=== PATIENT | female | born 1980 | race Two or more races ===

== ENCOUNTER 2024-03-29 17:51 | Emergency (ER) | payer MEDICAID, SELFPAY ==
[2024-03-29] VITALS (12 sets, daily range): BP systolic 115–135; BP diastolic 39–87; PULSE 75–100; RESP 14–23; TEMP 36.7–36.9; O2SAT 100; BMI 30.7
--- NOTE | 2024-03-29 19:05 | PD.EDWEAK ---
ED Weakness RME/HPI General Chief complaint: Weakness Stated complaint: LOW HGB, SENT BY [facility] Time Seen by Provider: 03/29/24 18:46 Arrival date/time: 03/29/24 17:51 43F with history of chronic anemia 2/2 to vaginal bleeding and possible H.pylori (patient is being evaluated outpatient) presents to ED with Hgb of 6.0 from clinic. Patient has weakness and some dizziness, particularly if she stands up quickly. Limitations: no limitations Related Data Home Medications ?Medication ?Instructions ?Recorded ?Confirmed vits no.126-ferrous fum 1 tab PO QDAY 05/12/21 05/12/21 28 mg iron-folic acid 800 mcg tablet (Classic ) Previous Rx's ?Medication ?Instructions ?Recorded cetirizine 10 mg tablet 10 mg PO QDAY #14 tabs 12/25/23 Allergies Allergy/AdvReac Type Severity Reaction Status Date / Time No Known Allergies Allergy Verified 03/29/24 17:52 Review of Systems Review of Systems Systems Reviewed: All systems reviewed, normal except as documented Constitutional Constitutional: Reports system reviewed and no additional complaints, except as documented, Denies fever(s), Denies headache(s) and Reports weakness ENT Ears, Nose, Mouth, and Throat: Reports as per HPI, Denies disequilibrium, Denies headache(s) and Reports vertigo Cardiovascular Cardiovascular: Reports system reviewed and no additional complaints, except as documented, Denies chest pain and Denies dyspnea Respiratory Respiratory: Reports system reviewed and no additional complaints, except as documented, Denies cough and Denies dyspnea Gastrointestinal Gastrointestinal: Reports system reviewed and no additional complaints, except as documented, Denies abdominal pain, Denies nausea and Denies vomiting Neurologic Neurologic: Reports system reviewed and no additional complaints, except as documented, Reports as per HPI, Denies confusion, Denies disequilibrium, Denies headache(s), Reports vertigo and Reports weakness Psychiatric Psychiatric: Denies confusion Past Medical History Past Medical History NEUROLOGIC: Negative Neurological Disorders CARDIAC: Negative Cardiac Disorders or Congestive Heart Failure RESPIRATORY: Negative Chronic Obstructive Pulmonary Disease (COPD) or Asthma GASTROINTESTINAL: Negative Gastrointestinal Disorders GENITOURINARY: Negative Genitourinary Disorders or Renal Disease REPRODUCTIVE: Positive Previous Pregnancies MUSCULOSKELETAL: Negative Musculoskeletal Disorders ENDOCRINE: Negative Endocrine Disorders, Diabetes Mellitus Type 1 or Diabetes Mellitus Type 2 HEMATOLOGIC: Positive Anemia; Negative Blood Disorders or Sickle Cell Disease OTHER HISTORY: Positive Hospitalization; Negative Autoimmune Disease Family History FAMILY HISTORY: Positive Family Respiratory Disorders and Family Cardiac Disorders; Negative Family Psychiatric Problems, Family Gastrointestinal Problems, Family Cancer, Family Surgery or Family Anesthesia Reaction Surgical History SURGICAL: Negative Section Social History SMOKING STATUS: Never smoker SECOND HAND EXPOSURE: No ED Exam General Limitations: Present no limitations General appearance: Present alert and in no apparent distress Head Head exam: Present atraumatic Eye Eye exam: Present normal appearance, PERRL and EOMI ENT ENT exam: Present normal exam, normal oropharynx and mucous membranes moist Neck Neck exam: Present normal inspection, full ROM and trachea midline Chest Chest inspection: Present normal inspection and symmetric chest wall rise Respiratory Respiratory exam: Present normal lung sounds bilaterally Cardiovascular Cardiovascular exam: Present regular rate, normal rhythm and normal heart sounds Abdominal Exam Abdominal exam: Present soft and normal bowel sounds Extremities Exam Extremities exam: Present normal inspection and full ROM Back Exam Back exam: Present normal inspection and full ROM Neurological Exam Neurological exam: Present alert, oriented X3 and CN II-XII intact Psychiatric Psychiatric exam: Present normal affect and normal mood Skin Skin exam: Present warm, dry, intact and normal color Course Quality Measures none Orders Category Date Time Status Insert IV NOW Care 03/29/24 19:55 Active CBC Stat Lab 03/29/24 19:00 Completed CMP [Comprehensive Metabolic Panel] Stat Lab 03/29/24 19:00 Completed Type and Screen Stat Lab 03/29/24 19:00 Completed prbc [Red Blood Cells] Stat Lab 03/29/24 19:00 Completed Acetaminophen Tab [Tylenol ES Tab] Med 03/29/24 21:35 Discontinued 1,000 mg PO X1 ONE Vital Signs Vital signs: Vital Signs Temperature 98.2 F 03/29/24 18:42 Pulse Rate 97 03/29/24 18:42 Respiratory Rate 19 03/29/24 18:42 Blood Pressure 135/87 H 03/29/24 18:42 Pulse Oximetry (%) 100 03/29/24 18:42 Oxygen Delivery Method Room Air 03/29/24 18:42 O2 at 100% on RA and WNLs Weakness MDM Narrative MDM Narrative:: 43F with history of chronic anemia 2/2 to vaginal bleeding and possible H.pylori (patient is being evaluated outpatient) presents to ED with Hgb of 6.0 from clinic. Patient has weakness and some dizziness, particularly if she stands up quickly. Physical exam reveals clear ENT and lungs. RRR. Patient is afebrile, calm, and alert. Hgb 7.7 here. Given patient is currently actively bleeding and global/constitutional symptoms, will transfuse 1 unit. CMP unremarkable. 1 unit given w/o issue. Patient data External records reviewed:: [facility] previous records Clinical information provided by:: patient Social determinants that could affect healthcare access:: none Patient has the following chronic illnesses:: anemia How is presenting disease/condition affected by chronic disease/condition?: caused by Evaluation data The following diagnostics were reviewed and interpreted by me:: lab results Lab and/or radiology exams considered but not ordered:: ordered Interpretation Summary: above Medications / Prescriptions Medications or Prescriptions considered but not ordered:: not ordered Medication administrations:: Medication Administration History Discontinued Medications Acetaminophen (Acetaminophen 500 Mg Tablet) 1,000 mg PO X1 ONE Stop: 03/29/24 21:36 Last Admin: 03/29/24 21:57 Dose: 1,000 mg Documented By: KD n/a Consultations Consultation(s) initiated? (list below): No Diagnosis Weakness Differential Diagnosis: acute myocardial infarction, anemia, hypoglycemia, hypothyroidism, rhabdomyolysis, sepsis and dehydration Most likely diagnosis given after review of the tests above:: anemia Admission Indicated Admission indicated?: not indicated Admission Request Was there a request for admission?: No Disposition Plan Disposition Plan: Discharge Discharge Attestation Discharge Attestation: The patient and all family members were given an opportunity to ask questions and understood the discharge instructions. Discharge instructions specifically effects, indications for sooner follow up or return to the emergency department, and the expected course of current diagnosis. Patient condition: Stable Discharge Plan Plan Patient Disposition: HOME (Self Care) Disposition Comment: Stable Prescriptions/Referrals Prescriptions/Med Rec: No Action Classic 28 mg iron- 800 mcg tablet 1 tab PO QDAY cetirizine 10 mg tablet 10 mg PO QDAY Qty: 14 0RF Referrals: Hermes Vyas MD [Primary Care Provider] - In 1 week Problem List Clinical Impression: Anemia Patient/Caregiver Discharge Instructions Education Materials: Anemia Additional Instructions: Please follow-up with PCP within 24-48 hours and return immediately if symptoms worsen. Print Language: Maori Stand Alone Forms: Patient Portal Info Letter MU/JESE Supervising Physician MU/JESE Supervising Physician: Dr. Chacko
[2024-03-29 19:08] LABS: Basophils # (Auto) 0.1 Thou/mm3 (0.0-0.2); Basophils % (Auto) 1 % (0-2.5); Eosinophils # (Auto) 0.7 Thou/mm3 (0.0-0.5); Eosinophils % (Auto) 7 % (0-10); Hematocrit 27.9 % (36.0-46.0); Immature Granulocytes % (Auto) 0 % (0-0); Immature Granulocytes Auto 0.02 Thou/mm3 (0.00-0.00); Lymphocytes # (Auto) 2.7 Thou/mm3 (1.0-4.8); Lymphocytes % (Auto) 28 % (10-50); Mean Corpuscular HGB Conc 27.6 g/dl (31.0-37.0); Mean Corpuscular Hemoglobin 16.9 pg (25.0-35.0); Mean Corpuscular Volume 61 fL (80-100); Monocytes # (Auto) 0.7 Thou/mm3 (0.0-0.8); Monocytes % (Auto) 7 % (0-12); Neutrophils # (Auto) 5.5 Thou/mm3 (1.8-7.7); Neutrophils % (Auto) 57 % (37-80); Nucleated Red Blood Cell % 0 /100 WBC (0); Platelet Count 373 Thou/mm3 (140-440); RDW Standard Deviation 40.1 fL (36.4-46.3); Red Blood Count 4.56 Miln/mm3 (4.00-5.20); White Blood Count 9.6 Thou/mm3 (3.6-11.0)
[2024-03-29 19:11] LABS: Hemoglobin 7.7 g/dL (12.0-16.0)
[2024-03-29 19:39] LABS: Alanine Aminotransferase 11 U/L (10-49); Albumin, Serum 4.2 gm/dL (3.5-5.0); Albumin/Globulin Ratio 1.5 (1.2-2.2); Alkaline Phosphatase 73 U/L (46-116); Anion Gap 7 (7-16); Aspartate Amino Transferase 13 U/L (0-34); BUN/Creatinine Ratio 18 Ratio (12-20); Bilirubin,Total 0.4 mg/dL (0.3-1.2); Blood Urea Nitrogen 9 mg/dL (9-23); Calcium 10.1 mg/dL (8.3-10.6); Calcium (Corrected) 10.1 mg/dL (8.5-10.1); Carbon Dioxide 23.5 mMol/L (20.0-31.0); Chloride 108 mMol/L (98-107); Creatinine (Component) 0.5 mg/dL (0.6-1.3); Estimated Creatinine Clearance 160.4 mL/min (>60); Globulin 2.8 gm/dL (2.3-3.5); Glucose 102 mg/dL (74-106); Osmolality,Calculated 274 (275-295); Potassium 3.5 mMol/L (3.4-5.1); Sodium 138 mMol/L (136-145); eGFR > 60 See Note
[2024-03-29] MEDS: ACETAMINOPHEN 500 MG TABLET 1000 MG PO (21:57)
[2024-03-30 00:11] VITALS: BP 115/57; PULSE 73; RESP 15; TEMP 36.8; O2SAT 100
== END 2024-03-30 00:18 | disposition home or self-care (01) ==
PROVIDERS: Physician Assistant; Emergency Provider Emergency Medicine; PCP Family Medicine
DX: D50.0 Iron deficiency anemia secondary to blood loss (chronic) (principal); N93.9 Abnormal uterine and vaginal bleeding, unspecified
CPT/HCPCS: 36415; 36430; 80053; 85025; 86850; 86900; 86901; 86923; 99285; P9016; A9270

== ENCOUNTER 2024-06-13 15:48 | Emergency (ER) | payer MEDICAID, SELFPAY ==
[2024-06-13 15:49] VITALS: BMI 32.5
[2024-06-13 16:10] VITALS: BP 133/76; PULSE 95; RESP 18; TEMP 37.1; O2SAT 99
--- NOTE | 2024-06-13 16:19 | EDRME_ITS ---
Rapid Medical Screening Exam [facility] Arrival date/time: 06/13/24 15:48 43-year-old female with no known medical history presents to the emergency room with a chief complaint of weakness and fatigue x 3 days. Patient was sent over by her primary care provider for a hemoglobin of 6.2. I have greeted and performed a focused initial assessment of this patient. A comprehensive ED assessment and evaluation of the patient, analysis of all test results, and completion of the medical decision making process will be conducted by additional ED providers. Chief Complaint: General Adult/Misc Complain Vital signs: Vital Signs Temperature 98.7 F 06/13/24 16:10 Pulse Rate 95 06/13/24 16:10 Respiratory Rate 18 06/13/24 16:10 Blood Pressure 133/76 H 06/13/24 16:10 Pulse Oximetry (%) 99 06/13/24 16:10 Oxygen Delivery Method Room Air 06/13/24 16:10 Vital signs reviewed by provider: Yes
[2024-06-13 16:57] LABS: Basophils # (Auto) 0.1 Thou/mm3 (0.0-0.2); Basophils % (Auto) 1 % (0-2.5); Eosinophils # (Auto) 0.5 Thou/mm3 (0.0-0.5); Eosinophils % (Auto) 7 % (0-10); Hematocrit 26.4 % (36.0-46.0); Immature Granulocytes % (Auto) 0 % (0-0); Immature Granulocytes Auto 0.02 Thou/mm3 (0.00-0.00); Lymphocytes # (Auto) 2.2 Thou/mm3 (1.0-4.8); Lymphocytes % (Auto) 30 % (10-50); Mean Corpuscular HGB Conc 26.9 g/dl (31.0-37.0); Mean Corpuscular Hemoglobin 17.2 pg (25.0-35.0); Mean Corpuscular Volume 64 fL (80-100); Monocytes # (Auto) 0.5 Thou/mm3 (0.0-0.8); Monocytes % (Auto) 7 % (0-12); Neutrophils # (Auto) 3.9 Thou/mm3 (1.8-7.7); Neutrophils % (Auto) 54 % (37-80); Nucleated Red Blood Cell % 0 /100 WBC (0); Platelet Count 428 Thou/mm3 (140-440); RDW Standard Deviation 44.6 fL (36.4-46.3); Red Blood Count 4.13 Miln/mm3 (4.00-5.20); White Blood Count 7.2 Thou/mm3 (3.6-11.0)
[2024-06-13 17:03] LABS: Hemoglobin 7.1 g/dL (12.0-16.0)
[2024-06-13 17:22] LABS: INR 0.9 (0.9-1.3); Partial Thromboplastin Time 21.7 Seconds (22.0-36.0); Prothrombin Time 9.8 Seconds (9.0-12.2)
[2024-06-13 17:24] LABS: Alanine Aminotransferase 9 U/L (10-49); Albumin, Serum 4.2 gm/dL (3.5-5.0); Albumin/Globulin Ratio 1.6 (1.2-2.2); Alkaline Phosphatase 72 U/L (46-116); Anion Gap 7 (7-16); Aspartate Amino Transferase 17 U/L (0-34); BUN/Creatinine Ratio 16 Ratio (12-20); Bilirubin,Total 0.4 mg/dL (0.3-1.2); Blood Urea Nitrogen 8 mg/dL (9-23); Carbon Dioxide 21.7 mMol/L (20.0-31.0); Chloride 110 mMol/L (98-107); Creatinine (Component) 0.5 mg/dL (0.6-1.3); Estimated Creatinine Clearance 159.8 mL/min (>60); Globulin 2.6 gm/dL (2.3-3.5); Glucose 106 mg/dL (74-106); Osmolality,Calculated 275 (275-295); Sodium 139 mMol/L (136-145); Total Protein 6.8 gm/dL (5.7-8.2); eGFR > 60 See Note
[2024-06-13 19:38] VITALS: BP 123/78; PULSE 86; RESP 18; TEMP 36.7; O2SAT 100
--- NOTE | 2024-06-13 21:15 | EDNOTE_ITS ---
ED General RME/HPI General Chief complaint: General Adult/Misc Complain Stated complaint: TIRED, FATIGUE,ABD PAIN SENT BY [facility] FOR HGB 6.2 Time Seen by Provider: 06/13/24 20:33 Arrival date/time: 06/13/24 15:48 RME / HPI RME / HPI narrative: 43-year-old female with no known medical history presents to the emergency room with a chief complaint of weakness and fatigue x 3 days. Patient was sent over by her primary care provider for a hemoglobin of 6.2. Patient usually received blood transfusion on a monthly basis for the last 1 year. Denies any vomiting blood denies any blood in the stool denies any heavy menstruation. 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 Pending to be seen by drilling superintendent Related Data Home Medications ?Medication ?Instructions ?Recorded ?Confirmed vits no.126-ferrous fum 1 tab PO QDAY 2 05/12/21 28 mg iron-folic acid 800 mcg tablet (Classic ) Previous Rx's ?Medication ?Instructions ?Recorded cetirizine 10 mg tablet 10 mg PO QDAY #14 tabs 12/24 Allergies Allergy/AdvReac Type Severity Reaction Status Date / Time No Known Allergies Allergy Verified 06/13/24 15:50 Review of Systems Review of Systems Narrative Review of Systems: Review of system reviewed and within normal limits except mentioned in HPI ED Exam Narrative Physical exam: VITAL SIGNS: Reviewed. GENERAL APPEARANCE: Alert and interactive, follows commands, no acute distress, HEAD AND FACE: Non-traumatic. ENT: PERRL, pale conjunctiva, eyelid no trauma, Mucous membrane moist. NECK: Supple, nontender, no nuchal rigidity. CHEST: No tenderness, no crepitus, no paradoxical movement, no retractions. LUNGS: Clear, well ventilated, symmetric, no rales, no wheezing, no ronchi, no stridor, good breath sounds bilaterally. HEART: Regular rate, regular rhythm, no murmur, no gallops. ABDOMEN: Soft, positive bowel sounds, nondistended, no guarding, nontender, no rebound, no masses, RECTAL: Deferred. GENITAL: Deferred. NEUROLOGICAL: Gross motor function intact sensory function intact, Appropriate for age. MUSCULOSKELETAL: low back nontender, full range of motion. EXTREMITIES: Nontender, full range of motion. SKIN: Color pale, dry, no rash, no lacerations, no abrasions, no contusions. LYMPHATICS: Deferred. Course Quality Measures none Orders Category Date Time Status Transfuse,blood/blood products ONCE Care 06/13/24 21:14 Completed CBC Stat Lab 06/13/24 16:21 Completed CMP [Comprehensive Metabolic Panel] Stat Lab 06/13/24 16:21 Completed PT [Prothrombin Time with INR] Stat Lab 06/13/24 16:21 Completed PTT [Partial Thromboplastin Time] Stat Lab 06/13/24 16:21 Completed Type and Screen Stat Lab 06/13/24 16:21 Completed prbc [Red Blood Cells] Stat Lab 06/13/24 16:21 Completed Vital Signs Vital signs: Vital Signs Temperature 98.7 F 06/13/24 16:10 Pulse Rate 95 06/13/24 16:10 Respiratory Rate 18 06/13/24 16:10 Blood Pressure 133/76 H 06/13/24 16:10 Pulse Oximetry (%) 99 06/13/24 16:10 Oxygen Delivery Method Room Air 06/13/24 16:10 Discharge Plan Plan Patient Disposition: HOME (Self Care) Disposition Comment: Stable Prescriptions/Referrals Prescriptions/Med Rec: No Action Classic 28 mg iron- 800 mcg tablet 1 tab PO QDAY cetirizine 10 mg tablet 10 mg PO QDAY Qty: 14 0RF Referrals: Hermes Vyas MD [Primary Care Provider] - In 1 week Problem List Clinical Impression: Anemia Patient/Caregiver Discharge Instructions Discharge Activity: activity as tolerated Education Materials: Anemia Additional Instructions: Thank you for the opportunity for serving you today. You are stable for discharged . You are advised to: Follow-up with your PCP in 1 to 2 days Return to ED for worsening of symptoms Print Language: Guinean Stand Alone Forms: [employer]zy Award Info., Patient Portal Info Letter PA/JESE Supervising Physician MU/JESE Supervising Physician: MD Ricco [facility] Patient Acuity Narrative: 43-year-old female with no known medical history presents to the emergency room with a chief complaint of weakness and fatigue x 3 days. Patient was sent over by her primary care provider for a hemoglobin of 6.2. Patient usually received blood transfusion on a monthly basis for the last 1 year. Denies any vomiting blood denies any blood in the stool denies any heavy menstruation. 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 Pending to be seen by drilling superintendent Patient's hemoglobin today was noted to be 7.1 hematocrit of 26.4. Patient is needing 2 units of packed RBC. Patient received 2 units of packed RBC. No post transfusion reaction noted Patient appears nontoxic and hemodynamically stable. Patient discharged home and instructed to follow-up with primary care provider in 24 to 48 hours. Instructed to return to the emergency department immediately if worsening of symptoms
[2024-06-13 21:39] VITALS: BP 124/80; PULSE 81; RESP 20; TEMP 37.2; O2SAT 100
[2024-06-13 23:03] VITALS: BP 135/75; PULSE 80; RESP 18; TEMP 36.7; O2SAT 99
[2024-06-13 23:26] VITALS: BP 119/65; PULSE 74; RESP 16; TEMP 36.7
[2024-06-13 23:41] VITALS: BP 109/66; PULSE 78; RESP 18; TEMP 36.7
[2024-06-14 00:41] VITALS: BP 109/66; PULSE 79; RESP 18; TEMP 36.7; O2SAT 98
[2024-06-14 00:55] VITALS: BP 108/66; PULSE 80; RESP 18; TEMP 36.8; O2SAT 98
[2024-06-14 01:11] VITALS: BP 115/55; PULSE 75; RESP 16; TEMP 36.9; O2SAT 99
[2024-06-14 01:26] VITALS: BP 118/60; PULSE 77; RESP 18; TEMP 36.9; O2SAT 99
[2024-06-14 02:27] VITALS: BP 118/59; PULSE 77; RESP 16; TEMP 36.9; O2SAT 99
--- NOTE | 2024-06-14 02:31 | PC.NURSE ---
pt recieved 2 units of blood. No adverse reactions and pt tolerated well.. VS stabled
== END 2024-06-14 02:36 | disposition home or self-care (01) ==
PROVIDERS: Nurse Practitioner Family; Emergency Provider Emergency Medicine; PCP Family Medicine
DX: D64.9 Anemia, unspecified (principal)
CPT/HCPCS: 36415; 36430; 80053; 85025; 85610; 85730; 86850; 86900; 86901; 86923; 99285; P9016

== ENCOUNTER 2024-06-27 10:02 | Emergency (ER) | payer MEDICAID, SELFPAY ==
[2024-06-27 10:21] VITALS: BP 120/81; PULSE 81; RESP 18; TEMP 37; O2SAT 99; BMI 32.5
--- NOTE | 2024-06-27 10:23 | EKG_ITS ---
[facility] Test Date: 2024-06-27 Pat Name: ANIBAL ROBLES Department: Room: - Gender: Female Contact Center Rep: : [id number] Requested By: Serg Beard Order Number: [id number] Reading MD: Serg Beard Measurements Intervals [place] Rate: 84 P: 58 VA: 153 QRS: 4 QRSD: 86 T: 24 QT: 334 QTc: 397 Interpretive Statements SINUS RHYTHM Compared to ECG 11/15/2023 00:30:59 No significant changes /store/S0/[id number]/[id number].pdf
--- NOTE | 2024-06-27 10:24 | XR_ITS ---
Examination: PA lateral chest 2 views TECHNIQUE: Upright PA lateral chest 2 views Exam date and time: June 27, 2024 1035 hours INDICATIONS: Chest pain beginning 3 days ago. FINDINGS: Normal heart size. Lungs are clear. Osseous structures are intact IMPRESSION: No active disease
--- NOTE | 2024-06-27 10:24 | PD.EDRME ---
Rapid Medical Screening Exam [facility] Arrival date/time: 06/27/24 10:02 43-year-old female with a history of anemia presents to the emergency room with a chief complaint of shortness of breath, bilateral lower extremity swelling, and generalized weakness x 2 days I have greeted and performed a focused initial assessment of this patient. A comprehensive ED assessment and evaluation of the patient, analysis of all test results, and completion of the medical decision making process will be conducted by additional ED providers. Chief Complaint: Weakness Time Seen by Provider: 06/27/24 10:11 Vital signs: Vital Signs Temperature 98.6 F 06/27/24 10:21 Pulse Rate 81 06/27/24 10:21 Respiratory Rate 18 06/27/24 10:21 Blood Pressure 120/81 06/27/24 10:21 Pulse Oximetry (%) 99 06/27/24 10:21 Oxygen Delivery Method Room Air 06/27/24 10:21 Vital signs reviewed by provider: Yes
[2024-06-27 11:21] LABS: Basophils # (Auto) 0.1 Thou/mm3 (0.0-0.2); Basophils % (Auto) 2 % (0-2.5); Eosinophils # (Auto) 0.4 Thou/mm3 (0.0-0.5); Eosinophils % (Auto) 5 % (0-10); Hematocrit 34.1 % (36.0-46.0); Hemoglobin 9.9 g/dL (12.0-16.0); Immature Granulocytes % (Auto) 0 % (0-0); Immature Granulocytes Auto 0.01 Thou/mm3 (0.00-0.00); Lymphocytes # (Auto) 2.1 Thou/mm3 (1.0-4.8); Lymphocytes % (Auto) 29 % (10-50); Mean Corpuscular Hemoglobin 19.3 pg (25.0-35.0); Mean Corpuscular Volume 67 fL (80-100); Monocytes # (Auto) 0.4 Thou/mm3 (0.0-0.8); Monocytes % (Auto) 6 % (0-12); Neutrophils # (Auto) 4.3 Thou/mm3 (1.8-7.7); Neutrophils % (Auto) 59 % (37-80); Nucleated Red Blood Cell % 0 /100 WBC (0); Platelet Count 362 Thou/mm3 (140-440); RDW Standard Deviation 53.3 fL (36.4-46.3); Red Blood Count 5.12 Miln/mm3 (4.00-5.20); White Blood Count 7.3 Thou/mm3 (3.6-11.0)
[2024-06-27 11:29] LABS: INR 0.9 (0.9-1.3); Partial Thromboplastin Time 23.5 Seconds (22.0-36.0); Prothrombin Time 10.3 Seconds (9.0-12.2)
[2024-06-27 11:34] LABS: Collection Type, Urine Clean Catch
[2024-06-27 11:34] LABS: B-Type Natriuretic Peptide 39 pg/mL (0-100)
[2024-06-27 11:37] LABS: Alanine Aminotransferase 11 U/L (10-49); Albumin, Serum 4.4 gm/dL (3.5-5.0); Albumin/Globulin Ratio 1.6 (1.2-2.2); Alkaline Phosphatase 84 U/L (46-116); Anion Gap 7 (7-16); Aspartate Amino Transferase 20 U/L (0-34); BUN/Creatinine Ratio 18 Ratio (12-20); Bilirubin,Total 0.5 mg/dL (0.3-1.2); Blood Urea Nitrogen 9 mg/dL (9-23); Calcium 10.3 mg/dL (8.3-10.6); Calcium (Corrected) 10.3 mg/dL (8.5-10.1); Carbon Dioxide 24.4 mMol/L (20.0-31.0); Chloride 105 mMol/L (98-107); Creatinine (Component) 0.5 mg/dL (0.6-1.3); Estimated Creatinine Clearance 159.7 mL/min (>60); Globulin 2.8 gm/dL (2.3-3.5); Glucose 119 mg/dL (74-106); Magnesium 1.8 mg/dL (1.6-2.6); Osmolality,Calculated 271 (275-295); Potassium 3.9 mMol/L (3.4-5.1); Sodium 136 mMol/L (136-145); Total Protein 7.2 gm/dL (5.7-8.2); Troponin I < 0.020 ng/mL (0.0-0.045); eGFR > 60 See Note
[2024-06-27 11:53] LABS: Bilirubin,Urine Negative (Negative); Blood,Urine Negative (Negative); Clarity,Urine Clear (Clear/Hazy); Color,Urine Lt-Yellow (Lt Yel-Yel); Glucose, Urine Negative (Negative); Ketones,Urine Negative (Negative); Leukocyte Esterase,Urine Negative (Negative); Nitrite,Urine Negative (Negative); PH,Urine 6.5 (5.0-7.0); Protein,Urine Negative (Neg - Trace); RBC,Urine 7 /hpf (0-3); Specific Gravity,Urine 1.013 (1.001-1.035); Squamous Epithelial Cell,Urine 4 /hpf (0-5); Urobilinogen,Urine Negative mg/dL (0.0-1.0); WBC,Urine 1 /hpf (0-5)
--- NOTE | 2024-06-27 12:53 | PD.EDWEAK ---
ED Weakness RME/HPI General Chief complaint: Weakness Stated complaint: WEAKNESS, FATIGUE, FEET SWOLLEN , SOB WHEN WALKIN Time Seen by Provider: 06/27/24 10:11 Source: patient Arrival date/time: 06/27/24 10:02 43-year-old female with a history of anemia presents to the emergency room with a chief complaint of shortness of breath, bilateral lower extremity swelling, and generalized weakness x 2 days Mode of arrival: ambulatory Limitations: no limitations RME / HPI RME / HPI Narrative: 06/27/24 10:02 43-year-old female with a history of anemia presents to the emergency room with a chief complaint of shortness of breath, bilateral lower extremity swelling, and generalized weakness x 2 days I have greeted and performed a focused initial assessment of this patient. A comprehensive ED assessment and evaluation of the patient, analysis of all test results, and completion of the medical decision making process will be conducted by additional ED providers. Related Data Home Medications ?Medication ?Instructions ?Recorded ?Confirmed vits no.126-ferrous fum 1 tab PO QDAY 05/12/21 05/12/21 28 mg iron-folic acid 800 mcg tablet (Classic ) Previous Rx's ?Medication ?Instructions ?Recorded cetirizine 10 mg tablet 10 mg PO QDAY #14 tabs 12/25/23 Allergies Allergy/AdvReac Type Severity Reaction Status Date / Time No Known Allergies Allergy Verified 06/27/24 10:05 Review of Systems Review of Systems Systems Reviewed: All systems reviewed, normal except as documented Constitutional Constitutional: Reports system reviewed and no additional complaints, except as documented, Denies fatigue, Denies fever(s), Denies headache(s) and Reports weakness Eyes Eyes: Reports system reviewed and no additional complaints, except as documented, Denies blurry vision and Denies change in vision ENT Ears, Nose, Mouth, and Throat: Reports system reviewed and no additional complaints, except as documented, Denies otalgia, Denies headache(s), Denies nasal congestion, Denies throat swelling and Denies vertigo Cardiovascular Cardiovascular: Reports system reviewed and no additional complaints, except as documented, Denies chest pain, Denies dyspnea and Denies dyspnea on exertion Respiratory Respiratory: Reports system reviewed and no additional complaints, except as documented, Denies chest congestion, Denies cough, Denies dyspnea, Denies dyspnea on exertion and Denies wheezing Gastrointestinal Gastrointestinal: Reports system reviewed and no additional complaints, except as documented, Denies abdominal pain, Denies cramping, Denies nausea and Denies vomiting Genitourinary Genitourinary: Reports system reviewed and no additional complaints, except as documented Musculoskeletal Musculoskeletal: Reports system reviewed and no additional complaints, except as documented and Denies back pain Integumentary/Breasts Skin/Breast: Reports system reviewed and no additional complaints, except as documented and Denies wounds Neurologic Neurologic: Reports system reviewed and no additional complaints, except as documented, Denies confusion, Denies headache(s), Denies lack of coordination, Denies vertigo and Reports weakness Psychiatric Psychiatric: Reports system reviewed and no additional complaints, except as documented, Denies anxiety, Denies confusion, Denies depression, Denies paranoia, Denies suicidal ideation and Denies tactile hallucinations Endocrine Endocrine: Reports system reviewed and no additional complaints, except as documented and Denies fatigue Hematologic/Lymphatic Hematologic/Lymphatic: Reports system reviewed and no additional complaints, except as documented and Denies lymphadenopathy Allergic/Immunologic Allergic/Immunologic: Reports system reviewed and no additional complaints, except as documented, Denies throat swelling, Denies urticaria and Denies wheezing Past Medical History Past Medical History NEUROLOGIC: Negative Neurological Disorders CARDIAC: Negative Cardiac Disorders or Congestive Heart Failure RESPIRATORY: Negative Chronic Obstructive Pulmonary Disease (COPD) or Asthma GASTROINTESTINAL: Negative Gastrointestinal Disorders GENITOURINARY: Negative Genitourinary Disorders or Renal Disease REPRODUCTIVE: Positive Previous Pregnancies MUSCULOSKELETAL: Negative Musculoskeletal Disorders ENDOCRINE: Negative Endocrine Disorders, Diabetes Mellitus Type 1 or Diabetes Mellitus Type 2 HEMATOLOGIC: Positive Anemia; Negative Blood Disorders or Sickle Cell Disease OTHER HISTORY: Positive Hospitalization; Negative Autoimmune Disease Family History FAMILY HISTORY: Positive Family Respiratory Disorders and Family Cardiac Disorders; Negative Family Psychiatric Problems, Family Gastrointestinal Problems, Family Cancer, Family Surgery or Family Anesthesia Reaction Surgical History SURGICAL: Negative Section Social History SMOKING STATUS: Never smoker SECOND HAND EXPOSURE: No ED Exam General Limitations: Present no limitations General appearance: Present alert and in no apparent distress Head Head exam: Present atraumatic Eye Eye exam: Present normal appearance, PERRL and EOMI ENT ENT exam: Present normal exam, normal oropharynx and mucous membranes moist Neck Neck exam: Present normal inspection, full ROM and trachea midline Chest Chest inspection: Present normal inspection and symmetric chest wall rise Respiratory Respiratory exam: Present normal lung sounds bilaterally Cardiovascular Cardiovascular exam: Present regular rate, normal rhythm and normal heart sounds Abdominal Exam Abdominal exam: Present soft and normal bowel sounds Extremities Exam Extremities exam: Present normal inspection and full ROM Expanded Lower Extremity Exam Hip/Pelvis exam: Present normal inspection Upper leg exam: Present normal inspection Knee exam: Present normal inspection Lower leg exam: Present swelling and other (+1 edema bilateral lower extremities) Ankle exam: Present swelling Foot/toe exam: Present swelling Gait: observed and normal Back Exam Back exam: Present normal inspection and full ROM Neurological Exam Neurological exam: Present alert, oriented X3 and CN II-XII intact Psychiatric Psychiatric exam: Present normal affect and normal mood Skin Skin exam: Present warm, dry, intact and normal color Course Quality Measures none Orders Category Date Time Status EKG (ED ONLY) *Do not use* NOW Care 06/27/24 10:23 Completed EKG (ED Only) Stat Exams 06/27/24 10:23 Draft XR chest 2V Stat Exams 06/27/24 10:24 Completed B-Type Natriuretic Peptide Stat Lab 06/27/24 10:45 Completed CBC Stat Lab 06/27/24 10:45 Completed Comprehensive Metabolic Panel Stat Lab 06/27/24 10:45 Completed Drug Screen,Urine Stat Lab 06/27/24 11:00 Received Magnesium Stat Lab 06/27/24 10:45 Completed Partial Thromboplastin Time Stat Lab 06/27/24 10:45 Completed Prothrombin Time with INR Stat Lab 06/27/24 10:45 Completed Troponin I Stat Lab 06/27/24 10:45 Completed Urinalysis Stat Lab 06/27/24 11:00 Completed Vital Signs Vital signs: Vital Signs Temperature 98.6 F 06/27/24 10:21 Pulse Rate 81 06/27/24 10:21 Respiratory Rate 18 06/27/24 10:21 Blood Pressure 120/81 06/27/24 10:21 Pulse Oximetry (%) 99 06/27/24 10:21 Oxygen Delivery Method Room Air 06/27/24 10:21 O2 saturation 99% within normal limits Procedures -ED EKG Interpretation #1: Date of EK06/27/24 Rate: 84 Interpretation: Reviewed by me EKG Impression: Normal sinus rhythm Weakness MDM Narrative MDM Narrative:: 43-year-old female with a history of anemia presents to the emergency room with a chief complaint of shortness of breath, bilateral lower extremity swelling, and generalized weakness x 2 days Patient is hemodynamically stable and in no apparent distress. Physical examination shows clear bilateral lung sounds. There is no wheezing or any abnormal breath sounds The patient has a normal regular rate S1 and S2 was noted. EKG was completed and shows normal sinus rhythm at 84 bpm. CBC CMP were negative for any acute findings. Troponin and BNP were within normal limits. The patient's lower extremities have +1 edema. CBC did show some iron deficiency anemia that could be the contributing factor to her weakness and generalized fatigue. Patient states she is unable to take iron pills as they make her sick but she does have an appointment with a blood specialist for possible iron transfusions. Patient was discharged and educated to follow-up with primary care provider in the next 24 to 48 hours and return to the emergency room for any evidence of worsening signs or symptoms Patient data External records reviewed:: [facility] previous records Clinical information provided by:: patient Social determinants that could affect healthcare access:: none Patient has the following chronic illnesses:: No chronic illness How is presenting disease/condition affected by chronic disease/condition?: no chronic disease Evaluation data The following diagnostics were reviewed and interpreted by me:: lab results and radiology exam(s) Lab and/or radiology exams considered but not ordered:: Labs radiology exams considered and ordered Interpretation Summary: Chest [id number]: Normal heart size. Lungs are clear. Osseous structures are intact IMPRESSION: No active disease Medications / Prescriptions Medications or Prescriptions considered but not ordered:: Medication not given Medication administrations:: Medication not given Consultations Consultation(s) initiated? (list below): No Diagnosis Weakness Differential Diagnosis: acute myocardial infarction, anemia, dehydration and other Most likely diagnosis given after review of the tests above:: Iron deficiency anemia Admission Indicated Admission indicated?: not indicated Admission Request Was there a request for admission?: No Disposition Plan Disposition Plan: Discharge Discharge Attestation Discharge Attestation: The patient and all family members were given an opportunity to ask questions and understood the discharge instructions. Discharge instructions specifically effects, indications for sooner follow up or return to the emergency department, and the expected course of current diagnosis. Patient condition: Stable Discharge Plan Plan Patient Disposition: HOME (Self Care) Discharge Disposition comment: Stable Prescriptions/Referrals Prescriptions/Med Rec: No Action Classic 28 mg iron- 800 mcg tablet 1 tab PO QDAY cetirizine 10 mg tablet 10 mg PO QDAY Qty: 14 0RF Referrals: Melisa Jon NP [Primary Care Provider] - In 1 week Problem List Clinical Impression: Swelling of lower extremity, Iron deficiency anemia Patient/Caregiver Discharge Instructions Education Materials: ED Leg Swelling in Both Legs Additional Instructions: Please follow-up with your primary care provider in the next 24 to 48 hours. Your cardiac examination was within normal limits. Your EKG showed normal sinus rhythm. Your blood work was negative for any acute findings. Your chest x-ray was completed and was also negative for any pneumonia your urinalysis was within normal limits Please follow-up with your primary care provider for further workup and management For any evidence of worsening signs or symptoms return to the emergency room immediately Print Language: Kyrgyz Stand Alone Forms: Litzy Award Info., Work/School Release, Patient Portal Info Letter PA/[employer] Supervising Physician PA/[employer] Supervising Physician: Dr. Reyes
[2024-06-27 12:54] VITALS: BP 122/77; PULSE 78
[2024-06-27 13:20] LABS: Amphetamine/Methamp Scrn,U Negative (Negative); Barbiturate Screen,Urine Negative (Negative); Benzodiazepines Screen,Urine Negative (Negative); Benzoylecgonine Screen, Ur Negative (Negative); Fentanyl Screen,Urine Negative (Negative); Opiate Screen,Urine Negative (Negative); THC Screen,Urine Negative (Negative)
[2024-06-27 14:05] LABS: Path Review Blood Smear Sent to Pathologist
== END 2024-06-27 12:55 | disposition home or self-care (01) ==
PROVIDERS: Nurse Practitioner Family; Emergency Provider Family Medicine; PCP Nurse Practitioner Women's Health
DX: D50.9 Iron deficiency anemia, unspecified (principal); M79.89 Other specified soft tissue disorders; R07.9 Chest pain, unspecified
CPT/HCPCS: 36415; 71046; 80053; 80307; 81001; 83735; 83880; 84484; 85025; 85610; 85730; 93005; 99283

== ENCOUNTER 2024-10-17 10:36 | Emergency (ER) | payer MEDICAID, SELFPAY ==
[2024-10-17 11:03] VITALS: BP 134/82; PULSE 96; RESP 19; TEMP 36.8; O2SAT 100; BMI 31.9
[2024-10-17 12:11] LABS: Basophils # (Auto) 0.1 Thou/mm3 (0.0-0.2); Basophils % (Auto) 1 % (0-2.5); Eosinophils # (Auto) 0.4 Thou/mm3 (0.0-0.5); Eosinophils % (Auto) 7 % (0-10); Hematocrit 27.3 % (36.0-46.0); Immature Granulocytes Auto 0.01 Thou/mm3 (0.00-0.00); Lymphocytes # (Auto) 2.0 Thou/mm3 (1.0-4.8); Lymphocytes % (Auto) 31 % (10-50); Mean Corpuscular HGB Conc 26.7 g/dl (31.0-37.0); Mean Corpuscular Hemoglobin 16.6 pg (25.0-35.0); Mean Corpuscular Volume 62 fL (80-100); Monocytes # (Auto) 0.4 Thou/mm3 (0.0-0.8); Monocytes % (Auto) 6 % (0-12); Neutrophils # (Auto) 3.5 Thou/mm3 (1.8-7.7); Neutrophils % (Auto) 55 % (37-80); Nucleated Red Blood Cell # 0.00 Thou/mm3 (0.00-0.00); Nucleated Red Blood Cell % 0 /100 WBC (0); Platelet Count 344 Thou/mm3 (140-440); RDW Standard Deviation 42.3 fL (36.4-46.3); Red Blood Count 4.40 Miln/mm3 (4.00-5.20); White Blood Count 6.3 Thou/mm3 (3.6-11.0)
[2024-10-17 12:16] LABS: INR 0.9 (0.9-1.3); Partial Thromboplastin Time 22.5 Seconds (22.0-36.0); Prothrombin Time 10.3 Seconds (9.0-12.2)
--- NOTE | 2024-10-17 12:16 | PD.EDRME ---
Rapid Medical Screening Exam RME Arrival date/time: 10/17/24 10:36 44-year-old female presents the Emergency Department for complaints of dizziness Chief Complaint: Dizziness Time Seen by Provider: 10/17/24 13:00 Vital signs: Vital Signs Temperature 98.2 F 10/17/24 11:03 Pulse Rate 96 10/17/24 11:03 Respiratory Rate 19 10/17/24 11:03 Blood Pressure 134/82 H 10/17/24 11:03 Pulse Oximetry (%) 100 10/17/24 11:03 Oxygen Delivery Method Room Air 10/17/24 11:03
[2024-10-17 12:19] LABS: HCG,Qualitative Serum Negative
[2024-10-17 12:30] LABS: Hemoglobin 7.3 g/dL (12.0-16.0)
[2024-10-17 12:41] LABS: Alanine Aminotransferase 9 U/L (10-49); Albumin, Serum 4.1 gm/dL (3.5-5.0); Albumin/Globulin Ratio 1.6 (1.2-2.2); Alkaline Phosphatase 82 U/L (46-116); Anion Gap 7 (7-16); Aspartate Amino Transferase 14 U/L (0-34); BUN/Creatinine Ratio 18 Ratio (12-20); Bilirubin,Total 0.5 mg/dL (0.3-1.2); Blood Urea Nitrogen 9 mg/dL (9-23); Calcium 10.8 mg/dL (8.3-10.6); Calcium (Corrected) 10.8 mg/dL (8.5-10.1); Carbon Dioxide 24.1 mMol/L (20.0-31.0); Chloride 107 mMol/L (98-107); Creatinine (Component) 0.5 mg/dL (0.6-1.3); Estimated Creatinine Clearance 156.5 mL/min (>60); Globulin 2.6 gm/dL (2.3-3.5); Glucose 101 mg/dL (74-106); Osmolality,Calculated 274 (275-295); Potassium 3.8 mMol/L (3.4-5.1); Sodium 138 mMol/L (136-145); Total Protein 6.7 gm/dL (5.7-8.2); eGFR > 60 See Note
--- NOTE | 2024-10-17 13:09 | PD.EDDIZZY ---
ED Dizzyness RME/HPI General Chief Complaint: Dizziness Stated Complaint: Dizzy, anemic sent by [facility] Time Seen by Provider: 10/17/24 13:00 Arrival date/time: 10/17/24 10:36 RME / HPI RME / HPI Narrative: 44-year-old female presents the Emergency Department for complaints of dizziness. Patient woke up this morning with dizziness, severity mild. Patient has a history of anemia, secondary to heavy menstruation. Patient went to PCP and was referred here for evaluation regarding anemia. Patient denies any vomiting blood denies any blood in the stool. Patient is ambulatory. Denies any chest pain. Denies any shortness of breath on ambulation. Currently not on any medication. Related Data Home Medications ?Medication ?Instructions ?Recorded ?Confirmed vits no.126-ferrous fum 1 tab PO QDAY 05/12/21 05/12/21 28 mg iron-folic acid 800 mcg tablet (Classic ) Previous Rx's ?Medication ?Instructions ?Recorded cetirizine 10 mg tablet 10 mg PO QDAY #14 tabs 12/25/23 ferrous sulfate 324 mg (65 mg 324 mg PO TID #90 tabs 10/17/24 iron) tablet,delayed release pantoprazole 40 mg tablet,delayed 40 mg PO QDAY #30 tabs 10/17/24 release (Protonix) Allergies Allergy/AdvReac Type Severity Reaction Status Date / Time No Known Allergies Allergy Verified 10/17/24 10:40 Review of Systems Review of Systems Narrative Review of Systems: Review of system reviewed and within normal limits except mentioned in HPI ED Exam Narrative Physical exam: VITAL SIGNS: Reviewed. GENERAL APPEARANCE: Alert and interactive, follows commands, no acute distress, HEAD AND FACE: Non-traumatic. ENT: PERRL, pale conjunctiva, eyelid no trauma, Mucous membrane moist. NECK: Supple, nontender, no nuchal rigidity. CHEST: No tenderness, no crepitus, no paradoxical movement, no retractions. LUNGS: Clear, well ventilated, symmetric, no rales, no wheezing, no ronchi, no stridor, good breath sounds bilaterally. HEART: Regular rate, regular rhythm, no murmur, no gallops. ABDOMEN: Soft, positive bowel sounds, nondistended, no guarding, nontender, no rebound, no masses, RECTAL: Deferred. GENITAL: Deferred. NEUROLOGICAL: Gross motor function intact sensory function intact, Appropriate for age. MUSCULOSKELETAL: low back nontender, full range of motion. EXTREMITIES: Nontender, full range of motion. SKIN: Color pale, dry, no rash, no lacerations, no abrasions, no contusions. LYMPHATICS: Deferred. Course Quality Measures none Orders Category Date Time Status CBC Stat Lab 10/17/24 11:11 Completed Comprehensive Metabolic Panel Stat Lab 10/17/24 11:11 Completed HCG,Qualitative Serum Stat Lab 10/17/24 11:11 Completed Partial Thromboplastin Time Stat Lab 10/17/24 11:11 Completed Prothrombin Time with INR Stat Lab 10/17/24 11:11 Completed Type and Screen Stat Lab 10/17/24 11:11 Completed Vital Signs Vital signs: Vital Signs Temperature 98.2 F 10/17/24 11:03 Pulse Rate 96 10/17/24 11:03 Respiratory Rate 19 10/17/24 11:03 Blood Pressure 134/82 H 10/17/24 11:03 Pulse Oximetry (%) 100 10/17/24 11:03 Oxygen Delivery Method Room Air 10/17/24 11:03 Dizziness MDM Narrative MDM Narrative:: 44-year-old female presents the Emergency Department for complaints of dizziness. Patient woke up this morning with dizziness, severity mild. Patient has a history of anemia, secondary to heavy menstruation. Patient went to PCP and was referred here for evaluation regarding anemia. Patient denies any vomiting blood denies any blood in the stool. Patient is ambulatory. Denies any chest pain. Denies any shortness of breath on ambulation. Currently not on any medication. Patient reports her workup is significant for hemoglobin of 7.3 hematocrit of 27.2 platelet is normal*labs unremarkable. Patient was given options for emergency blood transfusion however patient wanted to go home with iron supplement. Patient appears nontoxic and hemodynamically stable .Decision to discharge the patient. The patient/family was given an opportunity to ask questions and understood their discharge instructions. Discharge instructions specifically included follow up provider and time frame, current and/or new medications and possible side effects, indications for sooner follow up or return to the emergency department, and the expected course of current diagnosis. Patient reports feeling better as well and giving evidence of significant clinical improvement, I believe patient is now a candidate for discharge. Patient data External records reviewed:: None Clinical information provided by:: patient Social determinants that could affect healthcare access:: none Patient has the following chronic illnesses:: History of chronic anemia How is presenting disease/condition affected by chronic disease/condition?: exacerbated by Evaluation data The following diagnostics were reviewed and interpreted by me:: lab results Lab and/or radiology exams considered but not ordered:: None Interpretation Summary: See results MDM Medications / Prescriptions Medications or Prescriptions considered but not ordered:: None Medication administrations:: None Consultations Consultation(s) initiated? (list below): No Diagnosis Dizziness Differential Diagnosis: benign paroxysmal positional vertigo and other (Anemia, dizziness) Most likely diagnosis given after review of the tests above:: Anemia, dizziness Admission Indicated Admission indicated?: not indicated Admission Request Was there a request for admission?: No Disposition Plan Disposition Plan: Discharge Discharge Attestation Discharge Attestation: The patient was given an opportunity to ask questions and understood the discharge instructions. Discharge instructions specifically effects, indications for sooner follow up or return to the emergency department, and the expected course of current diagnosis. Patient condition: Stable Discharge Plan Plan Patient Disposition: HOME (Self Care) Discharge Disposition comment: stable Prescriptions/Referrals Prescriptions/Med Rec: New ferrous sulfate 324 mg (65 mg iron) tablet,delayed release (DR/EC) 324 mg PO TID Qty: 90 0RF pantoprazole [Protonix] 40 mg tablet,delayed release (DR/EC) 40 mg PO QDAY Qty: 30 0RF No Action Classic 28 mg iron- 800 mcg tablet 1 tab PO QDAY cetirizine 10 mg tablet 10 mg PO QDAY Qty: 14 0RF Referrals: Hermes Vyas MD [Primary Care Provider] - In 1 week Problem List Clinical Impression: Anemia Patient/Caregiver Discharge Instructions Discharge Activity: activity as tolerated Education Materials: Anemia Additional Instructions: Thank you for the opportunity for serving you today. You are stable for discharged . You are advised to: Follow-up with your PCP in 1 to 2 days Return to ED for worsening of symptoms Increase oral fluids Take medication as prescribed Increase intake of red meat, liver, green leafy vegetables Print Language: Tamazight Stand Alone Forms: [employer]zy Award Info., Patient Portal Info Letter PA/J[employer] Supervising Physician MU/JESE Supervising Physician: MD Eric
== END 2024-10-17 13:16 | disposition home or self-care (01) ==
PROVIDERS: Nurse Practitioner Primary Care; Emergency Provider Family Medicine; PCP Family Medicine
DX: D50.0 Iron deficiency anemia secondary to blood loss (chronic) (principal)
CPT/HCPCS: 36415; 80053; 84703; 85025; 85610; 85730; 86850; 86900; 86901; 99283

== ENCOUNTER 2024-11-07 21:51 | Emergency (ER) | payer MEDICAID, SELFPAY ==
[2024-11-07 21:53] VITALS: BMI 31.8
[2024-11-07 22:25] LABS: Basophils # (Auto) 0.1 Thou/mm3 (0.0-0.2); Basophils % (Auto) 1 % (0-2.5); Eosinophils # (Auto) 0.5 Thou/mm3 (0.0-0.5); Eosinophils % (Auto) 7 % (0-10); Hematocrit 24.9 % (36.0-46.0); Immature Granulocytes Auto 0.01 Thou/mm3 (0.00-0.00); Lymphocytes # (Auto) 2.6 Thou/mm3 (1.0-4.8); Lymphocytes % (Auto) 35 % (10-50); Mean Corpuscular HGB Conc 26.1 g/dl (31.0-37.0); Mean Corpuscular Hemoglobin 15.9 pg (25.0-35.0); Mean Corpuscular Volume 61 fL (80-100); Monocytes # (Auto) 0.4 Thou/mm3 (0.0-0.8); Monocytes % (Auto) 5 % (0-12); Neutrophils # (Auto) 3.7 Thou/mm3 (1.8-7.7); Neutrophils % (Auto) 52 % (37-80); Nucleated Red Blood Cell # 0.00 Thou/mm3 (0.00-0.00); Nucleated Red Blood Cell % 0 /100 WBC (0); Platelet Count 319 Thou/mm3 (140-440); RDW Standard Deviation 40.5 fL (36.4-46.3); Red Blood Count 4.08 Miln/mm3 (4.00-5.20); White Blood Count 7.2 Thou/mm3 (3.6-11.0)
[2024-11-07 22:31] LABS: Hemoglobin 6.5 g/dL (12.0-16.0)
[2024-11-07 22:45] LABS: Alanine Aminotransferase 14 U/L (10-49); Albumin, Serum 4.2 gm/dL (3.5-5.0); Albumin/Globulin Ratio 1.5 (1.2-2.2); Alkaline Phosphatase 84 U/L (46-116); Anion Gap 7 (7-16); Aspartate Amino Transferase 17 U/L (0-34); BUN/Creatinine Ratio 16 Ratio (12-20); Bilirubin,Total 0.4 mg/dL (0.3-1.2); Blood Urea Nitrogen 8 mg/dL (9-23); Calcium 10.5 mg/dL (8.3-10.6); Calcium (Corrected) 10.5 mg/dL (8.5-10.1); Carbon Dioxide 22.7 mMol/L (20.0-31.0); Chloride 111 mMol/L (98-107); Creatinine (Component) 0.5 mg/dL (0.6-1.3); Estimated Creatinine Clearance 161.7 mL/min (>60); Globulin 2.8 gm/dL (2.3-3.5); Glucose 100 mg/dL (74-106); Osmolality,Calculated 279 (275-295); Potassium 4.0 mMol/L (3.4-5.1); Sodium 141 mMol/L (136-145); Total Protein 7.0 gm/dL (5.7-8.2); eGFR > 60 See Note
--- NOTE | 2024-11-07 23:09 | PD.EDRME ---
Rapid Medical Screening Exam RME Arrival date/time: 11/07/24 21:51 44F with history of history of chronic anemia 2/2 to vaginal bleeding and H.pylori (s/p treatment) presents to ED with generalized weakness and low outpatient HgB. Patient has been here for this before, but usually patient is on her cycle, which she is not. This time, patient has had 3 days of ab pain, constipation, and a DA SILVA; none of which, typically happen for her. Chief Complaint: General Adult/Misc Complain Time Seen by Provider: 11/07/24 22:28
[2024-11-07 23:10] VITALS: BP 145/78; PULSE 105; RESP 16; TEMP 37.1; O2SAT 99
--- NOTE | 2024-11-07 23:21 | PD.EDADULT ---
ED General RME/HPI General Chief complaint: General Adult/Misc Complain Stated complaint: HGB 5.1 HX OF Time Seen by Provider: 11/07/24 22:28 Arrival date/time: 11/07/24 21:51 RME / HPI RME / HPI narrative: 11/07/24 21:51 44F with history of history of chronic anemia 2/2 to vaginal bleeding and H.pylori (s/p treatment) presents to ED with generalized weakness and low outpatient HgB. Patient has been here for this before, but usually patient is on her cycle, which she is not. This time, patient has had 3 days of ab pain, constipation, and a DA SILVA; none of which, typically happen for her. ------- Dr. Tinoco?s Main ED Evaluation: 44yo female with a history of anemia presents to the ED for a chief complaint of low hemoglobin. Patient had outpatient labs done and was sent here for evaluation due to her Hgb being low. She has an appointment with a page technician in February. She states she normally has significant blood loss on her menses, but she is not currently menstruating. She is not taking any iron supplements. Denies any hematemesis, melena, or any other associated symptoms. Related Data Home Medications ?Medication ?Instructions ?Recorded ?Confirmed vits no.126-ferrous fum 1 tab PO QDAY 05/12/21 05/12/21 28 mg iron-folic acid 800 mcg tablet (Classic ) Previous Rx's ?Medication ?Instructions ?Recorded cetirizine 10 mg tablet 10 mg PO QDAY #14 tabs 12/25/23 ferrous sulfate 324 mg (65 mg 324 mg PO TID #90 tabs 10/17/24 iron) tablet,delayed release pantoprazole 40 mg tablet,delayed 40 mg PO QDAY #30 tabs 10/17/24 release (Protonix) Allergies Allergy/AdvReac Type Severity Reaction Status Date / Time No Known Allergies Allergy Verified 11/07/24 21:56 Review of Systems Review of Systems Systems Reviewed: All systems reviewed, normal except as documented ED Exam Narrative Physical exam: Generally patient is alert and in no obvious distress, skin is cool pale and dry, heart regular rate and rhythm, lungs clear to auscultation equal bilaterally, abdomen soft bowel sounds present nondistended nontender, extremities show no edema, neurologic exam no ataxia without focal motor deficit and GCS of 15 Course Quality Measures none Orders Category Date Time Status Insert IV NOW Care 11/07/24 23:01 Active CBC Stat Lab 11/07/24 22:13 Completed CMP [Comprehensive Metabolic Panel] Stat Lab 11/07/24 22:13 Completed Type and Screen Stat Lab 11/07/24 22:13 Results prbc [Red Blood Cells] Stat Lab 11/07/24 22:13 Results DiphenhydrAMINE INJ [Benadryl Inj] Med 11/07/24 23:27 Discontinued 50 mg IVP X1 ONE Vital Signs Vital signs: Vital Signs Temperature 98.8 F 11/07/24 23:10 Pulse Rate 105 H 11/07/24 23:10 Respiratory Rate 16 11/07/24 23:10 Blood Pressure 145/78 H 11/07/24 23:10 Pulse Oximetry (%) 99 11/07/24 23:10 Oxygen Delivery Method Room Air 11/07/24 23:10 Discharge Plan Plan Patient Disposition: HOME (Self Care) Prescriptions/Referrals Prescriptions/Med Rec: No Action Classic 28 mg iron- 800 mcg tablet 1 tab PO QDAY ferrous sulfate 324 mg (65 mg iron) tablet,delayed release (DR/EC) 324 mg PO TID Qty: 90 0RF pantoprazole [Protonix] 40 mg tablet,delayed release (DR/EC) 40 mg PO QDAY Qty: 30 0RF cetirizine 10 mg tablet 10 mg PO QDAY Qty: 14 0RF Referrals: Josh Polanco PA-C [Primary Care Provider] - In 1 week Problem List Clinical Impression: Microcytic anemia Patient/Caregiver Discharge Instructions Education Materials: Anemia Additional Instructions: Patient may be discharged after transfusion. Follow-up with your doctor as needed. Print Language: Lithuanian Stand Alone Forms: Litzy Award Info., Patient Portal Info Letter MDM Narrative MDM hospital course (for use when minimal MDM required): Scribe Attestation: 11/07/24 Jeannie Laughlin am scribing for and in the presence of Dr. Tinoco. Patient has microcytic anemia with a hemoglobin of 6.5. She cannot tolerate iron. She will be typed and crossed and transfused with 2 units of packed RBCs. She has been transfused in the past. She denies any hematemesis. No melena or hematochezia. Clinical Information Provided by: patient Medical Records reviewed [facility] (Per chart review, patient was seen here on 10/17/24 for anemia.) Meds/Rx considered, not ordered None Labs/Rad/Tests considered, not ordered None Chronic Illness/Social Conditions Explain: Hx anemia Labs Labs: none Imaging Imaging interpretation: none Medication Administration(s) Medication Administration History Discontinued Medications Diphenhydramine HCl (Diphenhydramine Inj 50 Mg/Ml Vial) 50 mg IVP X1 ONE Stop: 11/07/24 23:28 Last Admin: 11/07/24 23:30 Dose: 50 mg Documented By: POLLY 2U pRBCs Diagnosis Differential Diagnosis ED Complaint MDM: See MDM
[2024-11-07 23:54] VITALS: BP 139/88; RESP 16; TEMP 37.4
[2024-11-08] VITALS (7 sets, daily range): BP systolic 119–143; BP diastolic 72–91; PULSE 73–100; RESP 15–18; TEMP 37–37.3; O2SAT 99–100
[2024-11-08 01:05] LABS: Path Review Blood Smear Sent to Pathologist
== END 2024-11-08 04:56 | disposition home or self-care (01) ==
PROVIDERS: Physician Assistant; Emergency Provider Emergency Medicine; PCP Physician Assistant
DX: D50.9 Iron deficiency anemia, unspecified (principal)
CPT/HCPCS: 36415; 36430; 80053; 85025; 86850; 86900; 86901; 86923; 96374; 99284; J1200; P9016

== ENCOUNTER 2024-11-12 10:56 | Emergency (ER) | payer MEDICAID, SELFPAY ==
[2024-11-12 11:08] VITALS: BP 134/81; PULSE 98; RESP 20; TEMP 37.4; O2SAT 95; BMI 31.8
--- NOTE | 2024-11-12 11:38 | PD.EDURI ---
Upper Respiratory Inf. RME/HPI General Chief Complaint: Flu Like Symptoms Stated Complaint: COUGH, CONGESTION, FEVER Time Seen by Provider: 11/12/24 11:06 Source: patient Arrival date/time: 11/12/24 10:56 44-year-old female with no known medical history presents to the emergency room with a chief complaint of cough, congestion, fevers x 2 days Mode of arrival: ambulatory Limitations: no limitations Related Data Home Medications ?Medication ?Instructions ?Recorded ?Confirmed vits no.126-ferrous fum 1 tab PO QDAY 05/12/21 05/12/21 28 mg iron-folic acid 800 mcg tablet (Classic ) Previous Rx's ?Medication ?Instructions ?Recorded cetirizine 10 mg tablet 10 mg PO QDAY #14 tabs 12/25/23 ferrous sulfate 324 mg (65 mg 324 mg PO TID #90 tabs 10/17/24 iron) tablet,delayed release pantoprazole 40 mg tablet,delayed 40 mg PO QDAY #30 tabs 10/17/24 release (Protonix) Allergies Allergy/AdvReac Type Severity Reaction Status Date / Time No Known Allergies Allergy Verified 11/12/24 10:59 Review of Systems Review of Systems Systems Reviewed: All systems reviewed, normal except as documented Constitutional Constitutional: Reports system reviewed and no additional complaints, except as documented, Denies fatigue, Denies fever(s), Denies headache(s) and Denies weakness Eyes Eyes: Reports system reviewed and no additional complaints, except as documented, Denies blurry vision and Denies change in vision ENT Ears, Nose, Mouth, and Throat: Reports system reviewed and no additional complaints, except as documented, Denies otalgia, Denies headache(s), Denies nasal congestion, Denies throat swelling and Denies vertigo Cardiovascular Cardiovascular: Reports system reviewed and no additional complaints, except as documented, Denies chest pain, Reports dyspnea and Denies dyspnea on exertion Respiratory Respiratory: Reports system reviewed and no additional complaints, except as documented, Denies chest congestion, Reports cough, Reports dyspnea, Denies dyspnea on exertion and Denies wheezing Gastrointestinal Gastrointestinal: Reports system reviewed and no additional complaints, except as documented, Denies abdominal pain, Denies cramping, Denies nausea and Denies vomiting Genitourinary Genitourinary: Reports system reviewed and no additional complaints, except as documented Musculoskeletal Musculoskeletal: Reports system reviewed and no additional complaints, except as documented and Denies back pain Integumentary/Breasts Skin/Breast: Reports system reviewed and no additional complaints, except as documented and Denies wounds Neurologic Neurologic: Reports system reviewed and no additional complaints, except as documented, Denies confusion, Denies headache(s), Denies lack of coordination, Denies vertigo and Denies weakness Psychiatric Psychiatric: Reports system reviewed and no additional complaints, except as documented, Denies anxiety, Denies confusion, Denies depression, Denies paranoia, Denies suicidal ideation and Denies tactile hallucinations Endocrine Endocrine: Reports system reviewed and no additional complaints, except as documented and Denies fatigue Hematologic/Lymphatic Hematologic/Lymphatic: Reports system reviewed and no additional complaints, except as documented and Denies lymphadenopathy Allergic/Immunologic Allergic/Immunologic: Reports system reviewed and no additional complaints, except as documented, Denies throat swelling, Denies urticaria and Denies wheezing Past Medical History Past Medical History NEUROLOGIC: Negative Neurological Disorders CARDIAC: Negative Cardiac Disorders or Congestive Heart Failure RESPIRATORY: Negative Chronic Obstructive Pulmonary Disease (COPD) or Asthma GASTROINTESTINAL: Negative Gastrointestinal Disorders GENITOURINARY: Negative Genitourinary Disorders or Renal Disease REPRODUCTIVE: Positive Previous Pregnancies MUSCULOSKELETAL: Negative Musculoskeletal Disorders ENDOCRINE: Negative Endocrine Disorders, Diabetes Mellitus Type 1 or Diabetes Mellitus Type 2 HEMATOLOGIC: Positive Anemia; Negative Blood Disorders or Sickle Cell Disease OTHER HISTORY: Positive Hospitalization; Negative Autoimmune Disease Family History FAMILY HISTORY: Positive Family Respiratory Disorders and Family Cardiac Disorders; Negative Family Psychiatric Problems, Family Gastrointestinal Problems, Family Cancer, Family Surgery or Family Anesthesia Reaction Surgical History SURGICAL: Negative Section Social History SMOKING STATUS: Current every day smoker SECOND HAND EXPOSURE: No ED Exam General Limitations: Present no limitations General appearance: Present alert and in no apparent distress Head Head exam: Present atraumatic Eye Eye exam: Present normal appearance, PERRL and EOMI ENT ENT exam: Present normal exam, normal oropharynx and mucous membranes moist Neck Neck exam: Present normal inspection, full ROM and trachea midline Chest Chest inspection: Present normal inspection and symmetric chest wall rise Respiratory Respiratory exam: Present normal lung sounds bilaterally; Absent respiratory distress, wheezes, stridor, accessory muscle use or prolonged expiratory phase Cardiovascular Cardiovascular exam: Present regular rate, normal rhythm and normal heart sounds; Absent tachycardia Abdominal Exam Abdominal exam: Present soft and normal bowel sounds Extremities Exam Extremities exam: Present normal inspection and full ROM Back Exam Back exam: Present normal inspection and full ROM Neurological Exam Neurological exam: Present alert, oriented X3 and CN II-XII intact Psychiatric Psychiatric exam: Present normal affect and normal mood Skin Skin exam: Present warm, dry, intact and normal color Course Quality Measures none Orders Category Date Time Status Bedside COVID-19 Antigen Test NOW Care 11/12/24 11:15 Active Bedside Influenza A&B Antigen Test NOW Care 11/12/24 11:15 Completed Vital Signs Vital signs: Vital Signs Temperature 99.4 F 11/12/24 11:08 Pulse Rate 98 11/12/24 11:08 Respiratory Rate 20 11/12/24 11:08 Blood Pressure 134/81 H 11/12/24 11:08 Pulse Oximetry (%) 95 11/12/24 11:08 Oxygen Delivery Method Room Air 11/12/24 11:08 Upper Respiratory Infection MDM Narrative MDM Narrative:: 44-year-old female with no known medical history presents to the emergency room with a chief complaint of cough, congestion, fevers x 2 days Patient is hemodynamically stable and in no apparent distress. Patient is afebrile not tachycardic not tachypneic and her O2 saturation is 95% on room air Physical examination shows clear bilateral lung sounds there is no wheezing or any abnormal breath sounds. Patient tested positive for COVID-19 Patient was discharged and educated to follow-up with primary care provider in the next 24 to 48 hours and return to the emergency room for any evidence of worsening signs or symptoms Patient data External records reviewed:: [facility] previous records Clinical information provided by:: patient Social determinants that could affect healthcare access:: none Patient has the following chronic illnesses:: No chronic illness How is presenting disease/condition affected by chronic disease/condition?: no chronic disease Evaluation data The following diagnostics were reviewed and interpreted by me:: lab results and radiology exam(s) Lab and/or radiology exams considered but not ordered:: Labs and radiology exams considered and ordered Interpretation Summary: N/A Medications / Prescriptions Medications or Prescriptions considered but not ordered:: No medication Medication administrations:: No medication given Consultations Consultation(s) initiated? (list below): No Diagnosis Upper Respiratory Differential Diagnosis: upper respiratory infection, viral infection, bronchitis, influenza and other (COVID-19) Most likely diagnosis given after review of the tests above:: COVID-19 Admission Indicated Admission indicated?: not indicated Admission Request Was there a request for admission?: No Disposition Plan Disposition Plan: Discharge Discharge Attestation Discharge Attestation: The patient and all family members were given an opportunity to ask questions and understood the discharge instructions. Discharge instructions specifically effects, indications for sooner follow up or return to the emergency department, and the expected course of current diagnosis. Patient condition: Stable Discharge Plan Plan Patient Disposition: HOME (Self Care) Discharge Disposition comment: Stable Prescriptions/Referrals Prescriptions/Med Rec: No Action Classic 28 mg iron- 800 mcg tablet 1 tab PO QDAY ferrous sulfate 324 mg (65 mg iron) tablet,delayed release (DR/EC) 324 mg PO TID Qty: 90 0RF pantoprazole [Protonix] 40 mg tablet,delayed release (DR/EC) 40 mg PO QDAY Qty: 30 0RF cetirizine 10 mg tablet 10 mg PO QDAY Qty: 14 0RF Problem List Clinical Impression: COVID-19 Patient/Caregiver Discharge Instructions Education Materials: 2019-nCoV Additional Instructions: Please follow-up with your primary care provider in the next 24 to 48 hours. You tested positive for COVID-19 The treatment for this is symptom management. Please continue to take Tylenol and ibuprofen for fever management. Please increase your oral fluid intake. For any evidence of worsening signs or symptoms please return to the emergency room immediately Print Language: Nepalese Stand Alone Forms: Litzy Award Info., Work/School Release, Patient Portal Info Letter PA/CRM BUSINESS ANALYST Supervising Physician PA/CRM BUSINESS ANALYST Supervising Physician: Dr. Nash
== END 2024-11-12 11:46 | disposition home or self-care (01) ==
LOC: SERX 11:59
PROVIDERS: Emergency Provider Nurse Practitioner Family; PCP Family Medicine
DX: U07.1 COVID-19 (principal)
CPT/HCPCS: 87400; 87811; 99283

== ENCOUNTER 2025-01-19 21:36 | Emergency (ER) | payer MEDICAID, SELFPAY ==
[2025-01-19 21:37] VITALS: BMI 31.8
[2025-01-19 21:51] VITALS: BP 130/81; PULSE 89; RESP 18; TEMP 36.7; O2SAT 99
--- NOTE | 2025-01-19 21:53 | EKG_ITS ---
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
--- NOTE | 2025-01-19 21:59 | PD.EDRME ---
Rapid Medical Screening Exam RME Arrival date/time: This is a case 01/19/25 21:36 This is a case of 44-year-old female who have history of anemia and previous blood transfusion came in with dizziness and fatigue for 2 days Chief Complaint: Dizziness Time Seen by Provider: 01/19/25 21:59 Vital signs: Vital Signs Temperature 98.1 F 01/19/25 21:51 Pulse Rate 89 01/19/25 21:51 Respiratory Rate 18 01/19/25 21:51 Blood Pressure 130/81 01/19/25 21:51 Pulse Oximetry (%) 99 01/19/25 21:51 Oxygen Delivery Method Room Air 01/19/25 21:51 Exam: Patient is awake alert oriented not in distress nontoxic looking well-hydrated well noushed neurological exam is normal Clinical Impression: Dizziness
[2025-01-19 22:25] LABS: Basophils # (Auto) 0.1 Thou/mm3 (0.0-0.2); Lymphocytes # (Auto) 2.3 Thou/mm3 (1.0-4.8); Mean Corpuscular Volume 65 fL (80-100); Monocytes # (Auto) 0.4 Thou/mm3 (0.0-0.8); Monocytes % (Auto) 6 % (0-12); Nucleated Red Blood Cell # 0.00 Thou/mm3 (0.00-0.00); Nucleated Red Blood Cell % 0 /100 WBC (0)
[2025-01-19 22:26] LABS: Basophils % (Auto) 1 % (0-2.5); Eosinophils # (Auto) 0.3 Thou/mm3 (0.0-0.5); Eosinophils % (Auto) 4 % (0-10); Hematocrit 29.7 % (36.0-46.0); Hemoglobin 8.5 g/dL (12.0-16.0); Immature Granulocytes Auto 0.00 Thou/mm3 (0.00-0.00); Lymphocytes % (Auto) 37 % (10-50); Mean Corpuscular HGB Conc 28.6 g/dl (31.0-37.0); Mean Corpuscular Hemoglobin 18.6 pg (25.0-35.0); Neutrophils # (Auto) 3.2 Thou/mm3 (1.8-7.7); Neutrophils % (Auto) 51 % (37-80); Platelet Count 374 Thou/mm3 (140-440); RDW Standard Deviation 43.7 fL (36.4-46.3); Red Blood Count 4.57 Miln/mm3 (4.00-5.20); White Blood Count 6.3 Thou/mm3 (3.6-11.0)
[2025-01-19 22:35] LABS: Anion Gap 8 (7-16); BUN/Creatinine Ratio 13 Ratio (12-20); Blood Urea Nitrogen 8 mg/dL (9-23); Calcium 10.4 mg/dL (8.3-10.6); Carbon Dioxide 21.8 mMol/L (20.0-31.0); Chloride 107 mMol/L (98-107); Creatinine (Component) 0.6 mg/dL (0.6-1.3); Estimated Creatinine Clearance 130.1 mL/min (>60); Glucose 103 mg/dL (74-106); Osmolality,Calculated 272 (275-295); Potassium 3.9 mMol/L (3.4-5.1); Sodium 137 mMol/L (136-145); eGFR > 60 See Note
--- NOTE | 2025-01-19 22:46 | PD.EDDIZZY ---
ED Dizzyness RME/HPI General Chief Complaint: Dizziness Stated Complaint: ANEMIA SX OF Time Seen by Provider: 01/19/25 21:59 Arrival date/time: 01/19/25 21:36 Limitations: no limitations RME / HPI RME / HPI Narrative: This is a case 01/19/25 21:36 This is a case of 44-year-old female who have history of anemia and previous blood transfusion came in with dizziness and fatigue for [address] Hinson's Main ED Evaluation: 44yo female with a history of anemia presents to the ED for a chief complaint of dizziness. Patient states she started feeling fatigued yesterday, reporting while at work today, she started to feel dizzy and nausea. She was concerned, so she came in for evaluation. Patient reports she is currently menstruating and has a heavy flow. Patient reports she typically gets transfused once a month. Patient denies any falls or injuries. Denies any chest pain, shortness of breath, or any other associated symptoms. NKA. Related Data Home Medications ?Medication ?Instructions ?Recorded ?Confirmed vits no.126-ferrous fum 1 tab PO QDAY 05/12/21 05/12/21 28 mg iron-folic acid 800 mcg tablet (Classic ) Previous Rx's ?Medication ?Instructions ?Recorded cetirizine 10 mg tablet 10 mg PO QDAY #14 tabs 12/25/23 ferrous sulfate 324 mg (65 mg 324 mg PO TID #90 tabs 10/17/24 iron) tablet,delayed release pantoprazole 40 mg tablet,delayed 40 mg PO QDAY #30 tabs 10/17/24 release (Protonix) Allergies Allergy/AdvReac Type Severity Reaction Status Date / Time No Known Allergies Allergy Verified 01/19/25 21:40 Review of Systems Review of Systems Systems Reviewed: All systems reviewed, normal except as documented Past Medical History Past Medical History NEUROLOGIC: Negative Neurological Disorders CARDIAC: Negative Cardiac Disorders or Congestive Heart Failure RESPIRATORY: Negative Chronic Obstructive Pulmonary Disease (COPD) or Asthma GASTROINTESTINAL: Negative Gastrointestinal Disorders GENITOURINARY: Negative Genitourinary Disorders or Renal Disease REPRODUCTIVE: Positive Previous Pregnancies MUSCULOSKELETAL: Negative Musculoskeletal Disorders ENDOCRINE: Negative Endocrine Disorders, Diabetes Mellitus Type 1 or Diabetes Mellitus Type 2 HEMATOLOGIC: Positive Anemia; Negative Blood Disorders or Sickle Cell Disease OTHER HISTORY: Positive Hospitalization; Negative Autoimmune Disease Family History FAMILY HISTORY: Positive Family Respiratory Disorders and Family Cardiac Disorders; Negative Family Psychiatric Problems, Family Gastrointestinal Problems, Family Cancer, Family Surgery or Family Anesthesia Reaction Surgical History SURGICAL: Negative Section Social History SMOKING STATUS: Never smoker SECOND HAND EXPOSURE: No ED Exam General Limitations: Present no limitations General appearance: Present alert and in no apparent distress Head Head exam: Present atraumatic Eye Eye exam: Present normal appearance, PERRL and EOMI ENT ENT exam: Present normal exam, normal oropharynx and mucous membranes moist Neck Neck exam: Present normal inspection, full ROM and trachea midline Chest Chest inspection: Present normal inspection and symmetric chest wall rise Respiratory Respiratory exam: Present normal lung sounds bilaterally Cardiovascular Cardiovascular exam: Present regular rate, normal rhythm and normal heart sounds Abdominal Exam Abdominal exam: Present soft and normal bowel sounds Extremities Exam Extremities exam: Present normal inspection and full ROM Back Exam Back exam: Present normal inspection and full ROM Neurological Exam Neurological exam: Present alert, oriented X3 and CN II-XII intact Psychiatric Psychiatric exam: Present normal affect and normal mood Skin Skin exam: Present warm, dry, intact and normal color Course Quality Measures none Orders Category Date Time Status EKG (ED ONLY) *Do not use* NOW Care 01/19/25 21:53 Completed EKG (ED Only) Stat Exams 01/19/25 21:53 Draft BMP [Basic Metabolic Panel] Stat Lab 01/19/25 22:00 Completed CBC Stat Lab 01/19/25 22:00 Completed Type and Screen Stat Lab 01/19/25 22:00 Completed Vital Signs Vital signs: Vital Signs Temperature 98.1 F 01/19/25 21:51 Pulse Rate 89 01/19/25 21:51 Respiratory Rate 18 01/19/25 21:51 Blood Pressure 130/81 01/19/25 21:51 Pulse Oximetry (%) 99 01/19/25 21:51 Oxygen Delivery Method Room Air 01/19/25 21:51 Dizziness MDM Narrative MDM Narrative:: Scribe Attestation: 01/19/25 Jeannie Laughlin am scribing for and in the presence of Dr. Hinson. Patient presents with similar symptoms of some light headedness. She states she just finished her period. Otherwise no chest pain or shortness of breath. EKG was reviewed interpreted by me. No elevations or depressions. H&H is actually stable and at this time I do not feel the patient needs a blood transfusion based on her numbers. While in the emergency department the patient symptoms have resolved. Hemoglobin is 8.5 and much higher than her usual's around 7. Urine creatinine are normal at 8/0.6 without evidence of acute renal failure. Patient will see her primary care this week otherwise at this time I do not feel like she needs to be transfused. Return precautions given and understood. Patient data External records reviewed:: [facility] previous records (Per chart review, patient was seen here on 11/12/24 for COVID.) Clinical information provided by:: patient Social determinants that could affect healthcare access:: none Patient has the following chronic illnesses:: anemia How is presenting disease/condition affected by chronic disease/condition?: caused by Evaluation data The following diagnostics were reviewed and interpreted by me:: lab results and EKG tracing(s) Lab and/or radiology exams considered but not ordered:: none Interpretation Summary: WBC normal, HnH stable at 8.5/29.7, Plt 374, BMP normal. EKG done at 2203, sinus rhythm, rate of 83, normal intervals, normal axis, no ST-T changes, according to my interpretation. Medications / Prescriptions Medications or Prescriptions considered but not ordered:: none Medication administrations:: none Consultations Consultation(s) initiated? (list below): No Diagnosis Dizziness Differential Diagnosis: other (acute on chronic anemia, dehydration, electrolyte abnormality) Most likely diagnosis given after review of the tests above:: see clinical impression below Admission Indicated Admission indicated?: not indicated Admission Request Was there a request for admission?: No Disposition Plan Disposition Plan: Discharge Discharge Attestation Discharge Attestation: The patient and all family members were given an opportunity to ask questions and understood the discharge instructions. Discharge instructions specifically effects, indications for sooner follow up or return to the emergency department, and the expected course of current diagnosis. Patient condition: Stable Discharge Plan Plan Patient Disposition: HOME (Self Care) Patient condition on transfer: Stable Prescriptions/Referrals Prescriptions/Med Rec: No Action Classic 28 mg iron- 800 mcg tablet 1 tab PO QDAY ferrous sulfate 324 mg (65 mg iron) tablet,delayed release (DR/EC) 324 mg PO TID Qty: 90 0RF pantoprazole [Protonix] 40 mg tablet,delayed release (DR/EC) 40 mg PO QDAY Qty: 30 0RF cetirizine 10 mg tablet 10 mg PO QDAY Qty: 14 0RF Referrals: Chad Polanco PA-C [Primary Care Provider, Medical] - In 1 week Problem List Clinical Impression: History of anemia Patient/Caregiver Discharge Instructions Additional Instructions: See your primary care in the next 24 to 48 hours for recheck to see if there is any additional medications they want to start you on. Please return to emergency department for worsening symptoms, shortness of breath, chest pain, worsening symptoms, or any other concerns. Print Language: Bruneian Stand Alone Forms: Litzy Award Info., Work/School Release, Patient Portal Info Letter
[2025-01-19 23:00] VITALS: RESP 16
== END 2025-01-19 23:03 | disposition home or self-care (01) ==
PROVIDERS: Emergency Provider Emergency Medicine; PCP Physician Assistant
DX: D64.9 Anemia, unspecified (principal); R42 Dizziness and giddiness
CPT/HCPCS: 36415; 80048; 85025; 86850; 86900; 86901; 93005; 99282